=== PATIENT | male | born 1945 | race Caucasian/White ===

== ENCOUNTER 2021-09-06 09:26 | Day surgery (SDC) | payer MEDICARE, OTHER ==
[~2021-09-06] VITALS: Ht 185.4 cm; Wt 114.7 kg
[~2021-09-06 09:26] MED LIST: Bisoprolol Fumar5 MG PO; CLON.5 PO; Desyrel150 MG PO; NORTRIPTYLINE H25 M2 PO; SERT100 PO; ZOLP10 PO
--- NOTE | 2021-09-06 10:08 | NUR ---
History, Chart, Medications and Allergies reviewed before start of procedure. Patient states colon prep results clear. Patient States Post-Procedure ride home has been arranged.
--- NOTE | 2021-09-06 10:26 | NUR ---
09/06/21 1026 Jose Cruz Colunga See Anesthesia record DR THOMAS MONITOR INTACT WITH CONTINUOUS PULSE OXIMETRY AND INTERMITTENT BP. O2 VIA N/C INTACT THROUGHOUT SEDATION/PROCEDURE. History, Chart, Medications and Allergies reviewed before start of procedure. Patient to ENDO 13-LEAD EKG REVIEWED WITH PHYSICIAN PRIOR TO START OF PROCEDURE.
--- NOTE | 2021-09-06 11:22 | NUR ---
Discharge instructions reviewed with patient. Patient verbalizes understanding. Copy given to patient to take home. PT TOLERATING PO FLUIDS
--- NOTE | 2021-09-06 11:53 | NUR ---
Discharged via wheelchair to LOBBY TO WAIT FOR SCHEDULED RIDE WITH ROSALINA ARCEO AT 1300.
== END 2021-09-06 11:57 | disposition home or self-care (01) ==
LOC: ORSCMMR 09:26 → ORD 11:15 → ORSCMMR 11:15
PROVIDERS: Surgery
PROC: 0DBK8ZX Excision of Ascending Colon, Via Natural or Artificial Opening Endoscopic, Diagnostic (ICD-10-PCS; principal; 2021-09-06 11:15)
PROC: 0DBH8ZX Excision of Cecum, Via Natural or Artificial Opening Endoscopic, Diagnostic (ICD-10-PCS; principal; 2021-09-06 11:15)
PROC: 0DBM8ZX Excision of Descending Colon, Via Natural or Artificial Opening Endoscopic, Diagnostic (ICD-10-PCS; principal; 2021-09-06 11:15)
PROC: 0DBN8ZX Excision of Sigmoid Colon, Via Natural or Artificial Opening Endoscopic, Diagnostic (ICD-10-PCS; principal; 2021-09-06 11:15)
PROC: 0DBL8ZX Excision of Transverse Colon, Via Natural or Artificial Opening Endoscopic, Diagnostic (ICD-10-PCS; principal; 2021-09-06 11:15)
DX: Z12.11 Encounter for screening for malignant neoplasm of colon (principal); Z86.010 Personal history of colon polyps; D12.5 Benign neoplasm of sigmoid colon; D12.4 Benign neoplasm of descending colon; D12.3 Benign neoplasm of transverse colon; D12.0 Benign neoplasm of cecum; D12.2 Benign neoplasm of ascending colon; K57.30 Diverticulosis of large intestine without perforation or abscess without bleeding; I10 Essential (primary) hypertension; G47.33 Obstructive sleep apnea (adult) (pediatric); F41.8 Other specified anxiety disorders; Z79.899 Other long term (current) drug therapy; E66.9 Obesity, unspecified; Z68.33 Body mass index [BMI] 33.0-33.9, adult
CPT/HCPCS: 88305; J2704; J7120